=== PATIENT | male | born 1955 | race Caucasian/White ===

== ENCOUNTER 2022-01-10 11:40 | Inpatient (IN) | payer OTHER ==
[2022-01-10 13:19] VITALS: BMI 22.5
[2022-01-10] MEDS ORDERED: ONDANSETRON *ODT* 4 MG TABLET SL PRN (13:57)
[2022-01-10] MEDS ORDERED: DICYCLOMINE HCL 10 MG CAPSULE PO PRN (13:57)
[2022-01-10] MEDS ORDERED: BENZOCAINE/MENTHOL (CHLORASEPTIC ) LOZENGE MM PRN (13:57)
[2022-01-10] MEDS ORDERED: BUPRENORPHINE HCL 150 MCG, BUPRENORPHINE HCL 75 MCG BC PRN (13:57)
[2022-01-10] MEDS ORDERED: MAGNESIUM CITRATE 300 ML BOTTLE PO PRN (13:57)
[2022-01-10] MEDS ORDERED: ACETAMINOPHEN 325 MG TABLET (FP) PO PRN (13:57)
[2022-01-10] MEDS ORDERED: MAG HYDROX/AL HYDROX/SIMETH 30 ML UNIT-DOSE CUP PO PRN (13:57)
[2022-01-10] MEDS ORDERED: BISMUTH SUBSALICYLATE 262 MG/15 ML BTL PO PRN (13:57)
[2022-01-10] MEDS ORDERED: LOPERAMIDE HCL 2 MG CAPSULE PO PRN (13:57)
[2022-01-10] MEDS ORDERED: MAGNESIUM HYDROX 2400MG/30ML ORAL SUSPENSION 30 ML CUP PO PRN (13:57)
[2022-01-10] MEDS ORDERED: IBUPROFEN 400 MG TABLET (FP) PO PRN (13:57)
[2022-01-10] MEDS ORDERED: BUPRENORPHINE HCL 150 MCG, BUPRENORPHINE HCL 75 MCG BC ONE (13:57)
[2022-01-10] MEDS ORDERED: cloNIDine HCL 0.1 MG TABLET PO ONE (13:57)
[2022-01-10] MEDS ORDERED: BUPRENORPHINE HCL 75 MCG FILM BC ONE (16:49)
[2022-01-10] MEDS ORDERED: BUPRENORPHINE HCL 150 MCG FILM BC ONE (16:49)
[2022-01-10] MEDS: diazePAM 5 MG TABLET PO PRN (17:46)
[2022-01-10] MEDS: hydrOXYzine PAMOATE 25 MG CAPSULE (FP) PO SCH ×4 (17:47→22:11)
[2022-01-10] MEDS ORDERED: cloNIDine HCL 0.1 MG TABLET PO PRN (17:58)
[2022-01-10] MEDS: MELATONIN 5 MG TABLETS PO SCH (22:11)
[2022-01-10] MEDS: METHOCARBAMOL 500 MG TABLET PO PRN (22:11)
[2022-01-10] MEDS: THIAMINE HCL 100 MG TABLET (FP) PO SCH (22:12)
[2022-01-11] MEDS ORDERED: BUPRENORPHINE HCL 150 MCG, BUPRENORPHINE HCL 75 MCG BC PRN
[2022-01-11] MEDS ORDERED: BUPRENORPHINE HCL 150 MCG FILM BC ONE ×2 (05:30→17:05)
[2022-01-11] MEDS: diazePAM 5 MG TABLET PO PRN ×3 (05:31→18:02)
[2022-01-11] MEDS: hydrOXYzine PAMOATE 25 MG CAPSULE (FP) PO SCH ×5 (05:31→22:53)
[2022-01-11] MEDS: BUPRENORPHINE HCL 150 MCG, BUPRENORPHINE HCL 75 MCG BC SCH ×2 (05:31→18:02)
[2022-01-11] MEDS ORDERED: BUPRENORPHINE HCL 75 MCG FILM BC ONE ×2 (05:31→17:05)
[2022-01-11] MEDS: PRENATAL VITAMINS W/ FOLIC ACID TABLET (FP) PO SCH (10:40)
[2022-01-11 13:35] LABS: HEMATOCRIT 38.9 % (35.4-49); HEMOGLOBIN 12.7 GM/dL (11.7-16.9); MCH 26.7 pg (25.7-33.7); MCHC 32.7 g/dl (32.0-35.9); MEAN CELL VOLUME 81.7 fl (80-96); MEAN PLT VOLUME 10.2 fl (7.5-11.1); PLATELET COUNT 181 10^3/uL (134-434); RBC 4.76 M/mm3 (4.00-5.60); RDW 16.1 % (11.9-15.9); WHITE BLOOD COUNT 6.7 K/mm3 (4.0-10.0)
[2022-01-11 13:52] LABS: BLOOD UREA NITROGEN 13.2 mg/dL (7-18); CALCIUM 8.7 mg/dL (8.5-10.1)
[2022-01-11 13:53] LABS: ALBUMIN 3.1 g/dl (3.4-5.0)
[2022-01-11 13:56] LABS: CREATININE 0.7 mg/dL (0.55-1.3)
[2022-01-11] MEDS: traZODone HCL 50 MG TABLET (FP) PO SCH (22:53)
[2022-01-11] MEDS: MELATONIN 5 MG TABLETS PO SCH (22:53)
[2022-01-11] MEDS: VENLAFAXINE HCL 75 MG E.R. CAPSULES PO SCH (22:53)
[2022-01-11] MEDS: MIRTAZAPINE 30 MG TABLET PO SCH (22:53)
[2022-01-11] MEDS: METHOCARBAMOL 500 MG TABLET PO PRN (22:54)
[2022-01-11] MEDS: THIAMINE HCL 100 MG TABLET (FP) PO SCH (22:54)
[2022-01-11] MEDS: DULoxetine HCL 30 MG CAPSULE.DR PO SCH (22:54)
[2022-01-12] MEDS: diazePAM 5 MG TABLET PO PRN ×3 (00:50→10:55)
[2022-01-12] MEDS: hydrOXYzine PAMOATE 25 MG CAPSULE (FP) PO SCH ×5 (05:23→22:19)
[2022-01-12] MEDS: BUPRENORPHINE HCL 450 MCG FILM BC SCH ×2 (05:23→17:45)
[2022-01-12] MEDS: PRENATAL VITAMINS W/ FOLIC ACID TABLET (FP) PO SCH (10:49)
[2022-01-12] MEDS: METHOCARBAMOL 500 MG TABLET PO PRN (10:49)
[2022-01-12] MEDS: GABAPENTIN 400 MG CAPSULE PO SCH ×2 (14:25→22:19)
[2022-01-12] MEDS: NICOTINE 10 MG CARTRIDGE (INHALER) IH PRN (15:06)
[2022-01-12] MEDS: ACETAMINOPHEN 325 MG TABLET (FP) PO PRN (17:48)
[2022-01-12] MEDS ORDERED: MIRTAZAPINE 15 MG TABLET (FP) ONE (21:28)
[2022-01-12] MEDS: MELATONIN 5 MG TABLETS PO SCH (22:19)
[2022-01-12] MEDS: THIAMINE HCL 100 MG TABLET (FP) PO SCH (22:19)
[2022-01-12] MEDS: DULoxetine HCL 30 MG CAPSULE.DR PO SCH (22:19)
[2022-01-12] MEDS: VENLAFAXINE HCL 75 MG E.R. CAPSULES PO SCH (22:19)
[2022-01-12] MEDS: traZODone HCL 50 MG TABLET (FP) PO SCH (22:19)
[2022-01-12] MEDS: MIRTAZAPINE 30 MG TABLET PO SCH (22:19)
[2022-01-13] MEDS: GABAPENTIN 400 MG CAPSULE PO SCH ×3 (06:04→22:11)
[2022-01-13] MEDS: hydrOXYzine PAMOATE 25 MG CAPSULE (FP) PO SCH ×5 (06:04→22:11)
[2022-01-13] MEDS: ACETAMINOPHEN 325 MG TABLET (FP) PO PRN ×2 (06:05→22:10)
[2022-01-13] MEDS: BUPRENORPHINE/NALOXONE 4 MG/1 MG FILM PACKET SL SCH ×2 (06:06→18:31)
[2022-01-13] MEDS: NICOTINE 10 MG CARTRIDGE (INHALER) IH PRN (10:16)
[2022-01-13] MEDS: PRENATAL VITAMINS W/ FOLIC ACID TABLET (FP) PO SCH (10:16)
[2022-01-13] MEDS: IBUPROFEN 600 MG TABLET (FP) PO PRN (18:30)
[2022-01-13] MEDS: traZODone HCL 50 MG TABLET (FP) PO SCH (22:10)
[2022-01-13] MEDS: DULoxetine HCL 30 MG CAPSULE.DR PO SCH (22:10)
[2022-01-13] MEDS: MELATONIN 5 MG TABLETS PO SCH (22:11)
[2022-01-13] MEDS: THIAMINE HCL 100 MG TABLET (FP) PO SCH (22:11)
[2022-01-13] MEDS: VENLAFAXINE HCL 75 MG E.R. CAPSULES PO SCH (22:11)
[2022-01-13] MEDS: MIRTAZAPINE 30 MG TABLET PO SCH (22:11)
[2022-01-14] MEDS: hydrOXYzine PAMOATE 25 MG CAPSULE (FP) PO SCH ×4 (05:22→17:44)
[2022-01-14] MEDS: NICOTINE 10 MG CARTRIDGE (INHALER) IH PRN ×2 (05:22→17:47)
[2022-01-14] MEDS: GABAPENTIN 400 MG CAPSULE PO SCH ×2 (05:22→14:39)
[2022-01-14] MEDS ORDERED: BUPRENORPHINE/NALOXONE 8 MG/2 MG FILM PACKET SL ONE (06:00)
[2022-01-14] MEDS: PRENATAL VITAMINS W/ FOLIC ACID TABLET (FP) PO SCH (10:08)
[2022-01-14] MEDS: IBUPROFEN 600 MG TABLET (FP) PO PRN (10:09)
[2022-01-14] MEDS: ACETAMINOPHEN 325 MG TABLET (FP) PO PRN (14:40)
[2022-01-14 19:10] VITALS: RESP 17
[2022-01-14 20:59] VITALS: BP 110/61; PULSE 64; TEMP 97.7
== END 2022-01-14 20:30 | disposition other institution (70) | DRG 897 ==
LOC: YASAS 11:40 → Y3N 14:27
PROVIDERS: ADMIT Allergy & Immunology; ATTEND Surgery
PROC: HZ2ZZZZ Detoxification Services for Substance Abuse Treatment (ICD-10-PCS; principal; 2022-01-10)
DX: F11.23 Opioid dependence with withdrawal (principal); F13.20 Sedative, hypnotic or anxiolytic dependence, uncomplicated; F19.280 Other psychoactive substance dependence with psychoactive substance-induced anxiety disorder; F19.282 Other psychoactive substance dependence with psychoactive substance-induced sleep disorder; F17.210 Nicotine dependence, cigarettes, uncomplicated; F19.24 Other psychoactive substance dependence with psychoactive substance-induced mood disorder; R76.11 Nonspecific reaction to tuberculin skin test without active tuberculosis; Z96.611 Presence of right artificial shoulder joint; Z96.641 Presence of right artificial hip joint; Z96.653 Presence of artificial knee joint, bilateral; Z95.2 Presence of prosthetic heart valve; Z88.1 Allergy status to other antibiotic agents; Z88.8 Allergy status to other drugs, medicaments and biological substances
CPT/HCPCS: 36415; 71046-TC-FY; 80053; 82947; 84132; 85027; 86780; 87811; 93005; 93010; C9803-CS; J0735; U0003; U0005

== ENCOUNTER 2022-01-14 21:35 | Inpatient (IN) | payer OTHER ==
[2022-01-14] MEDS ORDERED: MIRTAZAPINE 15 MG TABLET (FP) PO SCH (22:00)
[2022-01-14] MEDS ORDERED: MAGNESIUM CITRATE 300 ML BOTTLE PO PRN (22:47)
[2022-01-14] MEDS ORDERED: ACETAMINOPHEN 325 MG TABLET (FP) PO PRN (22:47)
[2022-01-14] MEDS ORDERED: MAG HYDROX/AL HYDROX/SIMETH 30 ML UNIT-DOSE CUP PO PRN (22:47)
[2022-01-14] MEDS ORDERED: LOPERAMIDE HCL 2 MG CAPSULE PO PRN (22:47)
[2022-01-14] MEDS ORDERED: P-EPHED 60MG/TRIPROLIDI 2.5MG TABLET PO PRN (22:47)
[2022-01-14] MEDS ORDERED: MAGNESIUM HYDROX 2400MG/30ML ORAL SUSPENSION 30 ML CUP PO PRN (22:47)
[2022-01-14] MEDS ORDERED: guaiFENesin 200 MG/10 ML 10 ML UNIT-DOSE CUPS PO PRN (22:47)
[2022-01-14] MEDS ORDERED: BENZOCAINE/MENTHOL (CHLORASEPTIC ) LOZENGE MM PRN (22:47)
[2022-01-14] MEDS ORDERED: NICOTINE POLACRILEX 2 MG GUM BUC PRN (22:47)
[2022-01-14] MEDS: MELATONIN 5 MG TABLETS PO SCH (23:23)
[2022-01-14] MEDS: IBUPROFEN 400 MG TABLET (FP) PO PRN (23:23)
[2022-01-14] MEDS: GABAPENTIN 400 MG CAPSULE PO SCH (23:23)
[2022-01-14] MEDS ORDERED: DULoxetine HCL 30 MG CAPSULE.DR PO ONE (23:42)
[2022-01-14] MEDS ORDERED: traZODone HCL 50 MG TABLET (FP) PO ONE (23:43)
[2022-01-14] MEDS ORDERED: VENLAFAXINE HCL 75 MG E.R. CAPSULES PO ONE (23:44)
[2022-01-15] MEDS: GABAPENTIN 400 MG CAPSULE PO SCH ×3 (06:17→21:07)
[2022-01-15] MEDS: PRENATAL VITAMINS W/ FOLIC ACID TABLET (FP) PO SCH (11:02)
[2022-01-15] MEDS: NICOTINE 14 MG/24 HOURS TOPICAL PATCH TD SCH (11:02)
[2022-01-15] MEDS ORDERED: BUPRENORPHINE/NALOXONE 8 MG/2 MG FILM PACKET SL ONE (18:00)
[2022-01-15] MEDS: THIAMINE HCL 100 MG TABLET (FP) PO SCH (21:07)
[2022-01-15] MEDS: MELATONIN 5 MG TABLETS PO SCH (21:07)
[2022-01-15] MEDS: IBUPROFEN 400 MG TABLET (FP) PO PRN (21:09)
[2022-01-16] MEDS: GABAPENTIN 400 MG CAPSULE PO SCH ×3 (06:27→21:14)
[2022-01-16] MEDS: NICOTINE 14 MG/24 HOURS TOPICAL PATCH TD SCH (09:44)
[2022-01-16] MEDS: PRENATAL VITAMINS W/ FOLIC ACID TABLET (FP) PO SCH (09:44)
[2022-01-16] MEDS: BUPRENORPHINE/NALOXONE 8 MG/2 MG FILM PACKET SL SCH ×2 (09:46→20:17)
[2022-01-16] MEDS: VENLAFAXINE HCL 75 MG E.R. CAPSULES PO SCH (21:14)
[2022-01-16] MEDS: THIAMINE HCL 100 MG TABLET (FP) PO SCH (21:15)
[2022-01-16] MEDS: IBUPROFEN 400 MG TABLET (FP) PO PRN (21:15)
[2022-01-16] MEDS: DULoxetine HCL 30 MG CAPSULE.DR PO SCH (21:17)
[2022-01-16] MEDS: traZODone HCL 50 MG TABLET (FP) PO SCH (21:17)
[2022-01-16] MEDS: MELATONIN 5 MG TABLETS PO SCH (21:17)
[2022-01-16] MEDS: MIRTAZAPINE 15 MG TABLET (FP) PO SCH (21:17)
[2022-01-17] MEDS: GABAPENTIN 400 MG CAPSULE PO SCH ×3 (06:15→21:09)
[2022-01-17] MEDS: BUPRENORPHINE/NALOXONE 8 MG/2 MG FILM PACKET SL SCH ×2 (09:50→21:10)
[2022-01-17] MEDS: PRENATAL VITAMINS W/ FOLIC ACID TABLET (FP) PO SCH (09:50)
[2022-01-17] MEDS: NICOTINE 14 MG/24 HOURS TOPICAL PATCH TD SCH (09:50)
[2022-01-17] MEDS: IBUPROFEN 400 MG TABLET (FP) PO PRN (13:49)
[2022-01-17] MEDS: THIAMINE HCL 100 MG TABLET (FP) PO SCH (21:08)
[2022-01-17] MEDS: VENLAFAXINE HCL 75 MG E.R. CAPSULES PO SCH (21:09)
[2022-01-17] MEDS: traZODone HCL 50 MG TABLET (FP) PO SCH (21:09)
[2022-01-17] MEDS: MIRTAZAPINE 15 MG TABLET (FP) PO SCH (21:09)
[2022-01-17] MEDS: MELATONIN 5 MG TABLETS PO SCH (21:09)
[2022-01-17] MEDS: DULoxetine HCL 30 MG CAPSULE.DR PO SCH (21:10)
[2022-01-18] MEDS: GABAPENTIN 400 MG CAPSULE PO SCH ×3 (06:15→21:28)
[2022-01-18] MEDS: NICOTINE 10 MG CARTRIDGE (INHALER) IH PRN (06:16)
[2022-01-18] MEDS: NICOTINE 14 MG/24 HOURS TOPICAL PATCH TD SCH (09:51)
[2022-01-18] MEDS: PRENATAL VITAMINS W/ FOLIC ACID TABLET (FP) PO SCH (09:51)
[2022-01-18] MEDS: IBUPROFEN 400 MG TABLET (FP) PO PRN (09:51)
[2022-01-18] MEDS: BUPRENORPHINE/NALOXONE 8 MG/2 MG FILM PACKET SL SCH ×2 (09:52→21:31)
[2022-01-18] MEDS: THIAMINE HCL 100 MG TABLET (FP) PO SCH (21:28)
[2022-01-18] MEDS: MELATONIN 5 MG TABLETS PO SCH (21:28)
[2022-01-18] MEDS: DULoxetine HCL 30 MG CAPSULE.DR PO SCH (21:29)
[2022-01-18] MEDS: VENLAFAXINE HCL 75 MG E.R. CAPSULES PO SCH (21:29)
[2022-01-18] MEDS: MIRTAZAPINE 15 MG TABLET (FP) PO SCH (21:29)
[2022-01-18] MEDS: traZODone HCL 50 MG TABLET (FP) PO SCH (21:29)
[2022-01-19] MEDS: NICOTINE 10 MG CARTRIDGE (INHALER) IH PRN ×2 (06:27→21:20)
[2022-01-19] MEDS: GABAPENTIN 400 MG CAPSULE PO SCH ×3 (06:27→21:22)
[2022-01-19] MEDS: NICOTINE 14 MG/24 HOURS TOPICAL PATCH TD SCH (09:54)
[2022-01-19] MEDS: PRENATAL VITAMINS W/ FOLIC ACID TABLET (FP) PO SCH (09:54)
[2022-01-19] MEDS: BUPRENORPHINE/NALOXONE 8 MG/2 MG FILM PACKET SL SCH ×2 (09:55→20:04)
[2022-01-19] MEDS: VENLAFAXINE HCL 75 MG E.R. CAPSULES PO SCH (21:22)
[2022-01-19] MEDS: THIAMINE HCL 100 MG TABLET (FP) PO SCH (21:22)
[2022-01-19] MEDS: DULoxetine HCL 30 MG CAPSULE.DR PO SCH (21:22)
[2022-01-19] MEDS: traZODone HCL 50 MG TABLET (FP) PO SCH (21:23)
[2022-01-19] MEDS: MIRTAZAPINE 15 MG TABLET (FP) PO SCH (21:23)
[2022-01-19] MEDS: SUVOREXANT 5 MG TABLET PO PRN (22:03)
[2022-01-19] MEDS: MELATONIN 5 MG TABLETS PO SCH (22:04)
[2022-01-20] MEDS: GABAPENTIN 400 MG CAPSULE PO SCH ×3 (06:36→21:06)
[2022-01-20] MEDS: NICOTINE 10 MG CARTRIDGE (INHALER) IH PRN (06:36)
[2022-01-20] MEDS: PRENATAL VITAMINS W/ FOLIC ACID TABLET (FP) PO SCH (09:51)
[2022-01-20] MEDS: BUPRENORPHINE/NALOXONE 8 MG/2 MG FILM PACKET SL SCH ×2 (09:51→20:05)
[2022-01-20] MEDS: NICOTINE 14 MG/24 HOURS TOPICAL PATCH TD SCH (09:51)
[2022-01-20] MEDS: IBUPROFEN 400 MG TABLET (FP) PO PRN (09:53)
[2022-01-20] MEDS: traZODone HCL 50 MG TABLET (FP) PO SCH (21:06)
[2022-01-20] MEDS: MIRTAZAPINE 15 MG TABLET (FP) PO SCH (21:06)
[2022-01-20] MEDS: DULoxetine HCL 30 MG CAPSULE.DR PO SCH (21:06)
[2022-01-20] MEDS: VENLAFAXINE HCL 75 MG E.R. CAPSULES PO SCH (21:06)
[2022-01-20] MEDS: SUVOREXANT 5 MG TABLET PO PRN (21:07)
[2022-01-20] MEDS: THIAMINE HCL 100 MG TABLET (FP) PO SCH (21:07)
[2022-01-21] MEDS: GABAPENTIN 400 MG CAPSULE PO SCH ×3 (06:15→21:18)
[2022-01-21] MEDS: NICOTINE 10 MG CARTRIDGE (INHALER) IH PRN (06:15)
[2022-01-21] MEDS: PRENATAL VITAMINS W/ FOLIC ACID TABLET (FP) PO SCH (09:47)
[2022-01-21] MEDS: IBUPROFEN 400 MG TABLET (FP) PO PRN ×2 (09:48→21:18)
[2022-01-21] MEDS: BUPRENORPHINE/NALOXONE 8 MG/2 MG FILM PACKET SL SCH ×2 (09:48→20:06)
[2022-01-21] MEDS: NICOTINE 14 MG/24 HOURS TOPICAL PATCH TD SCH (09:49)
[2022-01-21] MEDS: MIRTAZAPINE 15 MG TABLET (FP) PO SCH (21:18)
[2022-01-21] MEDS: traZODone HCL 50 MG TABLET (FP) PO SCH (21:18)
[2022-01-21] MEDS: THIAMINE HCL 100 MG TABLET (FP) PO SCH (21:19)
[2022-01-21] MEDS: DULoxetine HCL 30 MG CAPSULE.DR PO SCH (21:19)
[2022-01-21] MEDS: VENLAFAXINE HCL 75 MG E.R. CAPSULES PO SCH (21:19)
[2022-01-22] MEDS: GABAPENTIN 400 MG CAPSULE PO SCH ×3 (06:15→21:04)
[2022-01-22] MEDS: NICOTINE 14 MG/24 HOURS TOPICAL PATCH TD SCH (09:59)
[2022-01-22] MEDS: PRENATAL VITAMINS W/ FOLIC ACID TABLET (FP) PO SCH (10:00)
[2022-01-22] MEDS: IBUPROFEN 400 MG TABLET (FP) PO PRN (10:02)
[2022-01-22] MEDS: BUPRENORPHINE/NALOXONE 8 MG/2 MG FILM PACKET SL SCH ×2 (10:06→21:05)
[2022-01-22] MEDS: NICOTINE 10 MG CARTRIDGE (INHALER) IH PRN (10:07)
[2022-01-22] MEDS: THIAMINE HCL 100 MG TABLET (FP) PO SCH (21:04)
[2022-01-22] MEDS: SUVOREXANT 5 MG TABLET PO PRN (21:04)
[2022-01-22] MEDS: MIRTAZAPINE 15 MG TABLET (FP) PO SCH (21:04)
[2022-01-22] MEDS: traZODone HCL 50 MG TABLET (FP) PO SCH (21:05)
[2022-01-22] MEDS: DULoxetine HCL 30 MG CAPSULE.DR PO SCH (21:05)
[2022-01-22] MEDS: VENLAFAXINE HCL 75 MG E.R. CAPSULES PO SCH (21:05)
[2022-01-22] MEDS ORDERED: SUVOREXANT 5 MG TABLET PO PRN (22:00)
[2022-01-23] MEDS: NICOTINE 10 MG CARTRIDGE (INHALER) IH PRN (06:20)
[2022-01-23] MEDS: GABAPENTIN 400 MG CAPSULE PO SCH ×3 (06:20→21:08)
[2022-01-23] MEDS: IBUPROFEN 400 MG TABLET (FP) PO PRN (10:02)
[2022-01-23] MEDS: BUPRENORPHINE/NALOXONE 8 MG/2 MG FILM PACKET SL SCH ×2 (10:03→21:10)
[2022-01-23] MEDS: PRENATAL VITAMINS W/ FOLIC ACID TABLET (FP) PO SCH (10:03)
[2022-01-23] MEDS: NICOTINE 14 MG/24 HOURS TOPICAL PATCH TD SCH (10:03)
[2022-01-23] MEDS: VENLAFAXINE HCL 75 MG E.R. CAPSULES PO SCH (21:08)
[2022-01-23] MEDS: THIAMINE HCL 100 MG TABLET (FP) PO SCH (21:08)
[2022-01-23] MEDS: DULoxetine HCL 30 MG CAPSULE.DR PO SCH (21:08)
[2022-01-23] MEDS: traZODone HCL 50 MG TABLET (FP) PO SCH (21:08)
[2022-01-23] MEDS: MIRTAZAPINE 15 MG TABLET (FP) PO SCH (21:08)
[2022-01-24] MEDS: GABAPENTIN 400 MG CAPSULE PO SCH (06:11)
[2022-01-24] MEDS: NICOTINE 10 MG CARTRIDGE (INHALER) IH PRN (06:12)
[2022-01-24 06:33] VITALS: BP 151/89; PULSE 74; RESP 16; TEMP 98.2
[2022-01-24] MEDS: NICOTINE 14 MG/24 HOURS TOPICAL PATCH TD SCH (09:02)
[2022-01-24] MEDS: PRENATAL VITAMINS W/ FOLIC ACID TABLET (FP) PO SCH (09:02)
[2022-01-24] MEDS: BUPRENORPHINE/NALOXONE 8 MG/2 MG FILM PACKET SL SCH (09:02)
== END 2022-01-24 09:18 | disposition home or self-care (01) | DRG 895 ==
LOC: YASAS 21:35 → Y3E 21:39
PROVIDERS: ADMIT Allergy & Immunology; ATTEND Psychiatry & Neurology Pain Medicine
PROC: HZ42ZZZ Group Counseling for Substance Abuse Treatment, Cognitive-Behavioral (ICD-10-PCS; principal; 2022-01-14)
DX: F13.20 Sedative, hypnotic or anxiolytic dependence, uncomplicated (principal); F11.20 Opioid dependence, uncomplicated; F17.210 Nicotine dependence, cigarettes, uncomplicated; H40.9 Unspecified glaucoma; G89.29 Other chronic pain; R26.2 Difficulty in walking, not elsewhere classified; Z99.89 Dependence on other enabling machines and devices; Z98.890 Other specified postprocedural states; Z96.652 Presence of left artificial knee joint; Z96.641 Presence of right artificial hip joint; Z96.611 Presence of right artificial shoulder joint; Z95.2 Presence of prosthetic heart valve
CPT/HCPCS: 82962; 83036; C9803-CS; U0003; U0005